=== PATIENT | male | born 1975 | race Caucasian/White ===

== ENCOUNTER 2024-09-12 12:59 | Oncology outpatient (recurring) (ONCR) | payer MEDICAID, SELFPAY ==
[2024-09-12] MEDS: iron sucrose 200 MG in sodium chloride 0.9% (100 ml) 100 ML IV (13:53)
[2024-09-12 14:30] VITALS: BP 95/64; PULSE 104; O2SAT 95
== END 2024-09-24 23:59 | disposition home or self-care (01) ==
PROVIDERS: PCP Nurse Practitioner Family; Visit Provider Nurse Practitioner Family
DX: D50.9 Iron deficiency anemia, unspecified (principal); Z79.899 Other long term (current) drug therapy
CPT/HCPCS: 96365; J1756

== ENCOUNTER 2024-09-26 13:30 | Oncology outpatient (recurring) (ONCR) | payer MEDICAID, SELFPAY ==
[2024-09-26] MEDS: iron sucrose 200 MG in sodium chloride 0.9% (100 ml) 100 ML 220 MG IV (14:33)
== END 2024-10-24 23:59 | disposition home or self-care (01) ==
LOC: ONCMED 13:30
PROVIDERS: PCP Nurse Practitioner Family; Visit Provider Nurse Practitioner Family
DX: D50.9 Iron deficiency anemia, unspecified (principal); Z79.899 Other long term (current) drug therapy
CPT/HCPCS: 96365; J1756